=== PATIENT | female | born 2000 | race Caucasian/White ===

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

== ENCOUNTER 2019-07-25 20:42 | Emergency (ER) | payer BC, MEDICAID, OTHER ==
[~2019-07-25] VITALS: Ht 165.1 cm; Wt 120.0 kg
[2019-07-25 20:46] VITALS: BP 125/81
[2019-07-25] MEDS ORDERED: ketorolac trometh inj. 60 MG/2 ML VIAL IM ONE (22:05)
[2019-07-25] MEDS ORDERED: HYDROcodone/acetaminophen 10/325mg tab PO ONE (22:05)
[2019-07-25] MEDS ORDERED: CefTRIAXone 250MG inj IM ONE (22:05)
[2019-07-25] MEDS ORDERED: SULF1TAB49 PO (22:09)
[2019-07-25] MEDS ORDERED: CEPH250T PO (22:09)
[2019-07-25] MEDS ORDERED: CefTRIAXone 250MG IM Kit w/LIDOcaine IM ONE (22:10)
== END 2019-07-25 22:48 | disposition home or self-care (01) ==
LOC: ER 20:42
DX: T81.41XA Infection following a procedure, superficial incisional surgical site, initial encounter (principal); E66.01 Morbid (severe) obesity due to excess calories; G47.30 Sleep apnea, unspecified; Z79.899 Other long term (current) drug therapy; Y83.8 Other surgical procedures as the cause of abnormal reaction of the patient, or of later complication, without mention of misadventure at the time of the procedure; Y92.89 Other specified places as the place of occurrence of the external cause
CPT/HCPCS: 96372; 99283; J0696; J1885

== ENCOUNTER 2019-07-27 13:34 | Emergency (ER) | payer MEDICAID ==
[~2019-07-27] VITALS: Ht 165.1 cm; Wt 120.0 kg
[~2019-07-27 13:34] MED LIST changes: +CEPH250T PO; +SULF1TAB49 PO
[2019-07-27 14:15] VITALS: BP 148/83
== END 2019-07-28 08:49 | disposition left against medical advice (07) ==
LOC: ER 13:34
DX: T81.89XA Other complications of procedures, not elsewhere classified, initial encounter (principal); Z53.21 Procedure and treatment not carried out due to patient leaving prior to being seen by health care provider; Y92.89 Other specified places as the place of occurrence of the external cause

== ENCOUNTER 2021-02-03 03:07 | Emergency (ER) | payer MEDICAID ==
[~2021-02-03] VITALS: Ht 165.1 cm; Wt 113.6 kg
[~2021-02-03 03:07] MED LIST changes: -CEPH250T PO; -SULF1TAB49 PO
[2021-02-03 03:08] VITALS: BP 136/107
== END 2021-02-03 03:46 ==
LOC: ER 03:07
DX: Z04.1 Encounter for examination and observation following transport accident (principal); Z79.899 Other long term (current) drug therapy; V87.7XXA Person injured in collision between other specified motor vehicles (traffic), initial encounter; Y93.89 Activity, other specified; Y92.89 Other specified places as the place of occurrence of the external cause; Y99.8 Other external cause status
CPT/HCPCS: 99283

== ENCOUNTER 2024-05-28 01:29 | Emergency (ER) | payer MEDICAID ==
[~2024-05-28] VITALS: Ht 165.1 cm; Wt 119.4 kg
[2024-05-28 02:51] VITALS: BP 141/81; PULSE 82; RESP 16; TEMP 98.8; O2SAT 100
== END 2024-05-28 02:52 | disposition home or self-care (01) ==
LOC: ER 01:29
DX: J22 Unspecified acute lower respiratory infection (principal); G47.30 Sleep apnea, unspecified; O99.350 Diseases of the nervous system complicating pregnancy, unspecified trimester
CPT/HCPCS: 99281

== ENCOUNTER 2025-02-01 17:13 | Emergency (ER) | payer MEDICAID ==
[~2025-02-01] VITALS: Ht 152.4 cm; Wt 119.6 kg
--- NOTE | 2025-02-01 17:30 | Physician Documentation ---
History of Present Illness ~ Chief Complaint: Headache Stated Complaint: MIGRAINE Time Seen by MD: 17:40 Primary Medical Doctor: none HPI This is a 24-year-old female who presents with a right-sided headache that has described as throbbing with associated nausea without vomiting onset earlier today. Patient reports light and loud sounds make the headache worse. Patient reports she has two weeks and had preeclampsia during . States she took her [place] today because she was going to court with her friend hoping might help with her headache. She states she is currently breast- feeding. Day of Onset: Feb 01, 2025 Medication Reconciliation Allergies: Coded Allergies: No Known Allergies (Unverified , 05/28/24) Scheduled PRN Cyclobenzaprine* (Cyclobenzaprine*), 1 TABLET PO NIGHTLY PRN for muscle spasms Past Medical History Past Medical History: Sleep Apnea Past Surgical History: no surgical history Alcohol Use: None Drug Use: none Lives with: Mother Lives In: Home Occupation: employed Review of Systems All Other Systems at this time: Reviewed and Negative ROS As stated above in the HPI, otherwise all systems are reviewed and negative. Physical Exam Vital Signs: Temperature: 97.9, Source: Temporal, Heart Rate: 75, Respiratory Rate: 18, BP: 144/101, Pulse Oximetry: 99, Weight: 119.600 Oxygen Flow Rate: 0 Physical Exam VITALS: Reviewed and as above. GENERAL: Alert, nontoxic appearing, no apparent distress. HEENT: RESPIRATORY: No increased work of breathing, no respiratory distress, speaking in full clear sentences SKIN: NEURO: Neurologically intact PSYCH: Progress Results/Orders Results/Orders Vital Signs 02/01/25 02/01/25 02/01/25 02/01/25 17:16 17:31 18:08 19:23 Temp 97.9 97.9 Pulse 75 68 77 Resp 18 18 18 16 B/P (MAP) 144/101 150/97 (114) 161/95 Pulse Ox 99 96 100 O2 Flow Rate 0 0 Laboratory Tests Test 02/01/25 17:35 White Blood Count 9.0 Red Blood Count 4.32 Hemoglobin 11.7 L Hematocrit 34.6 L Mean Corpuscular Volume 80.0 Mean Corpuscular Hemoglobin 27.2 Mean Corpuscular Hemoglobin Concent 33.9 Red Cell Distribution Width 14.8 H Platelet Count 389 Mean Platelet Volume 8.5 Neutrophils (%) (Auto) 59.0 Lymphocytes (%) (Auto) 30.3 Monocytes (%) (Auto) 8.0 Eosinophils (%) (Auto) 1.4 Basophils (%) (Auto) 1.3 H Neutrophils # (Auto) 5.3 Lymphocytes # (Auto) 2.7 Monocytes # (Auto) 0.7 Eosinophils # (Auto) 0.1 Basophils # (Auto) 0.1 CBC Comment Sodium Level 141 Potassium Level 3.8 Chloride Level 104 Carbon Dioxide Level 27.2 Anion Gap 10 Blood Urea Nitrogen 17 Creatinine 0.85 Estimated GFR/1.73 m2 81 BUN/Creatinine Ratio 20.0 Glucose Level 86 Calcium Level 9.2 Total Bilirubin 0.3 Aspartate Amino Transf (AST/SGOT) 31 Alanine Aminotransferase (ALT/SGPT) 46 Alkaline Phosphatase 87 Total Protein 7.7 Albumin 3.3 L Globulin 4.4 H Albumin/Globulin Ratio 0.8 L Lipase 23 Chemistry Comments Medical Decision Making Findings MSE performed in triage and patient placed in available ED room Treated this patient for nausea and a migraine of the fluid antiemetics and Toradol. She reported overall improved symptoms I did I did educate her on pumping and dumping regarding her oxycodone usage. Patient is safe for discharge Differential Dx:Considerations: Include: CUTLER-Cluster, CUTLER-Migraine, CUTLER- Hypertensive, CUTLER-Muscular contraction, CUTLER-Post lumbar puncture, Carbon monoxide toxicity, Close head injuyr, CVA, Fever induced, Hemorrhage-Epidural, Hemorrhage-Intracerebral, Hemorrhage-Subarachnoid, Hemorrhage-Subdural, Mass lesion, Meningitis, Post-traumtic, Pseudotumor cerebri, Sinusitis, Temporal arteritis, Trigeminal neuralgia, Other Departure Disposition: 01 HOME / SELF CARE / HOMELESS Impression: Primary Impression: Headache Additional Impression: Migraine Discharge Instructions: Headache, Migraine Headache Referrals: NO PRIMARY CARE PROVIDER (PCP) Education Educated: Patient Educated regarding: diagnosis Signature Scribe Signature: r Attestation: Scribed for Chucky Bear Np by Chucky Pemberton NP . 02/01/25 18:46 GILSON GILL Feb 01, 2025 17:30 CHUCKY BEAR NP Feb 01, 2025 17:46 BREANNA WISE MD Feb 03, 2025 07:27
[2025-02-01 18:08] VITALS: TEMP 97.9
[2025-02-01] MEDS: diphenhydrAMINE 50 mg/ml inj IM ONE (18:11)
[2025-02-01] MEDS: ketorolac trometh 30MG/ML vial 30 MG/ML VIAL IM ONE (18:13)
[2025-02-01 18:18] LABS: BASOPHILS # (AUTO) 0.1 X10'3 (0-0.2); BASOPHILS % (AUTO) 1.3 % (0-1); EOSINOPHILS # (AUTO) 0.1 X10'3 (0-0.9); EOSINOPHILS % (AUTO) 1.4 % (0-6); HEMATOCRIT 34.6 % (35.0-45.0); HEMOGLOBIN 11.7 g/dl (12.0-16.0); LYMPHOCYTES # (AUTO) 2.7 X10'3 (1.1-4.8); LYMPHOCYTES % (AUTO) 30.3 % (21-51); MEAN CORPUSCULAR HEMOGLOBIN 27.2 PG (27.0-31.0); MEAN CORPUSCULAR HGB CONC 33.9 g/dL (33.0-36.5); MEAN PLATELET VOLUME 8.5 FL (7.4-10.4); MONOCYTES # (AUTO) 0.7 X10'3 (0-0.9); NEUTROPHILS # (AUTO) 5.3 X10'3 (1.8-7.7); PLATELET COUNT 389 X10'3 (140-440); RED BLOOD COUNT 4.32 X10'6 (4.20-5.60); RED CELL DISTRIBUTION WIDTH 14.8 % (11.5-14.5)
[2025-02-01 18:24] LABS: ALANINE AMINOTRANSFERASE 46 U/L (12-78); ALBUMIN 3.3 G/DL (3.4-5.0); ALBUMIN/GLOBULIN RATIO 0.8 (1.1-1.5); ALKALINE PHOSPHATASE 87 IU/L (46-116); ANION GAP 10 (8-16); ASPARTATE AMINO TRANSFERASE 31 U/L (10-37); BILIRUBIN,TOTAL 0.3 MG/DL (0.1-1.0); BLOOD UREA NITROGEN 17 MG/DL (7-18); CALCIUM 9.2 MG/DL (8.5-10.1); CHLORIDE 104 MMOL/L (99-107); CREATININE 0.85 MG/DL (0.40-0.90); GLUCOSE 86 MG/DL (70-104); LIPASE 23 U/L (16-77); POTASSIUM 3.8 MMOL/L (3.5-5.1); SODIUM 141 MMOL/L (135-145); TOTAL CARBON DIOXIDE 27.2 MMOL/L (24-32); TOTAL PROTEIN 7.7 G/DL (6.4-8.2); eCRCL 73 ML/MIN; eGFR 81 ML/MIN
[2025-02-01] MEDS: metoclopramide 5 mg/ml inj IV ONE (18:38)
[2025-02-01] MEDS: normal saline 1000ml 1,000 ML IV ONE (18:38)
[2025-02-01] MEDS: ketorolac trometh 30MG/ML vial 30 MG/ML VIAL IV ONE (18:39)
[2025-02-01] MEDS: diphenhydrAMINE 50 mg/ml inj IV ONE (18:39)
[2025-02-01 19:23] VITALS: BP 161/95; PULSE 77; RESP 16; O2SAT 100
== END 2025-02-01 19:30 | disposition home or self-care (01) ==
LOC: ER 17:14
DX: G43.909 Migraine, unspecified, not intractable, without status migrainosus (principal); G47.30 Sleep apnea, unspecified; R11.0 Nausea
CPT/HCPCS: 36415; 80053; 83690; 85025; 96361; 96374; 96375; 99284; J1200; J1885; J2765; J7030